=== PATIENT | female | born 1980 | race Caucasian/White ===

== ENCOUNTER 2021-01-29 14:12 | Outpatient (CLI) | payer OTHER | END 2021-01-29 23:59 | disposition home or self-care (01) | LOC: RAD 14:12 | PROVIDERS: ATTEND Nurse Practitioner Family | DX: N85.8 Other specified noninflammatory disorders of uterus (principal); R10.84 Generalized abdominal pain | CPT/HCPCS: 74176 ==

== ENCOUNTER → 2021-03-13 | Outpatient (CLI) | payer OTHER ==
[2021-03-13 10:50] LABS: INTERNATIONAL NORMALIZED RATIO 1.02 (0.93-1.1); PROTHROMBIN TIME 10.9 Seconds (9.6-11.5)
[2021-03-13 10:51] LABS: CREATININE 0.82 mg/dL (0.55-1.02)
[2021-03-13 10:54] LABS: MICROSCOPIC AUTO
[2021-03-13 11:00] LABS: ANION GAP 5 mmol/L (5-15)
[2021-03-13 11:01] LABS: CHLORIDE 109 mmol/L (98-107)
[2021-03-13 11:06] LABS: BASOPHILS % (AUTO) 1 % (0-1); EOSINOPHILS % (AUTO) 2 % (1-7); LYMPHOCYTES % (AUTO) 30 % (22-44); MEAN CORPUSCULAR HEMOGLOBIN 29.9 pg (27.0-34.8); MEAN PLATELET VOLUME 9.3 fL (7.4-10.4); MONOCYTES % (AUTO) 9 % (2-9); NEUTROPHILS % (AUTO) 59 % (42-75); PLATELET COUNT 251 x10^3/uL (130-400); RED BLOOD COUNT 4.67 x10^6/uL (3.82-5.3); RED CELL DISTRIBUTION WIDTH 13.5 % (9.6-15.2)
== END | disposition home or self-care (01) ==
LOC: STAR 09:57
PROVIDERS: ATTEND Student in an Organized Health Care Education/Training Program
DX: Z01.812 Encounter for preprocedural laboratory examination (principal); N39.3 Stress incontinence (female) (male); Z20.822 Contact with and (suspected) exposure to COVID-19
CPT/HCPCS: 36415; 80048; 81001; 85025; 85610; 87086; U0003; U0005

== ENCOUNTER 2021-03-18 13:33 | Day surgery (SDC) | payer OTHER ==
[~2021-03-18] VITALS: Ht 170.2 cm; Wt 68.3 kg
[2021-03-18] MEDS ORDERED: CHLORHEXIDINE 15 ML UDC PO ONE (14:00)
[2021-03-18] MEDS ORDERED: NO HOME MEDS PER PT (14:02)
[2021-03-18 14:05] VITALS: BP 121/83
[2021-03-18] MEDS ORDERED: CHLORHEXIDINE 15 ML UDC ONE (14:06)
[2021-03-18] MEDS ORDERED: LACTATED RINGERS 1,000 ML IV SCH (14:30)
[2021-03-18 14:47] LABS: HCG UR SG 1.013 (1.003-1.030)
[2021-03-18] MEDS ORDERED: PROMETHAZINE 25 MG/ML, 1ML IVPush PRN (15:00)
[2021-03-18] MEDS ORDERED: ACETAMINOPHEN 325 MG TABLET PO PRN (15:00)
[2021-03-18] MEDS ORDERED: hydrALAzine 20 MG/ML, 1ML IV PRN (15:00)
[2021-03-18] MEDS ORDERED: EPHEDRINE 50 MG/ML, 1ML IVPush PRN (15:00)
[2021-03-18] MEDS ORDERED: ONDANSETRON 2MG/ML, 2ML IVPush PRN (15:00)
[2021-03-18] MEDS ORDERED: OXYcodone 5 MG/5 ML ORAL.SOL UDC PO PRN (15:00)
[2021-03-18] MEDS ORDERED: FENTANYL PF 100 MCG/2ML IV PRN (15:00)
[2021-03-18] MEDS ORDERED: LABETALOL 5MG/ML, 20ML IV PRN (15:00)
[2021-03-18] MEDS ORDERED: HYDROmorphone 1 MG/ML, 1ML INJ IVPush PRN (15:00)
[2021-03-18] MEDS ORDERED: PROPOFOL 50 ML ONE ×2 (16:14→16:35)
[2021-03-18] MEDS ORDERED: FENTANYL PF 100 MCG/2ML ONE (17:13)
[2021-03-18] MEDS ORDERED: OXYcodone 5 MG/5 ML ORAL.SOL UDC ONE (17:19)
[2021-03-18] MEDS ORDERED: ACETAMINOPHEN 650 MG/20.3 ML UDC ONE (17:19)
== END 2021-03-18 20:10 | disposition home or self-care (01) ==
LOC: OR 13:33
PROVIDERS: ATTEND Student in an Organized Health Care Education/Training Program
DX: N39.3 Stress incontinence (female) (male) (principal)
CPT/HCPCS: 51715; 81025; J2704; J3010; J7120; L8606

== ENCOUNTER → 2021-03-27 | Outpatient (CLI) | payer OTHER ==
[~2021-03-27] MED LIST: NO HOME MEDS PER PT
== END | disposition home or self-care (01) ==
LOC: RAD 10:41
PROVIDERS: ATTEND Student in an Organized Health Care Education/Training Program
DX: R10.9 Unspecified abdominal pain (principal); R30.9 Painful micturition, unspecified
CPT/HCPCS: 74018; 87086